=== PATIENT | female | born 1965 | race Caucasian/White ===

== ENCOUNTER 2017-01-14 01:14 | Emergency (ER) | payer MEDICAID ==
[2017-01-14 01:14] VITALS: BMI 26.9
[2017-01-14 01:28] VITALS: PULSE 134; RESP 18; TEMP 99.2
--- NOTE | 2017-01-14 02:50 | ED PDOC ---
HPI: CCC, URI, Sore Throat Time Seen by Provider: 01/14/17 02:17 Chief Complaint (Nursing): ENT Problem Chief Complaint (Provider): ENT problem History Per: Patient History/Exam Limitations: no limitations Onset/Duration Of Symptoms: Days (5x) Current Symptoms Are (Timing): Still Present Location Of Pain: Throat Associated Symptoms: Sore Throat, Cough (dry) Severity: Moderate Additional Complaint(s): 51 year old female with no pertinent medical history presents to the ED with complaints of a sore throat that started 5x days ago. She reports having associated symptoms of a cough, bodyaches, and a headache. She denies having a fever or chills. PMD: Fletcher Cabrera MD Past Medical History Reviewed: Historical Data, Nursing Documentation, Vital Signs Vital Signs: Last Vital Signs Temp 99.2 F 01/14/17 01:23 Pulse 134 H 01/14/17 01:23 Resp 18 01/14/17 01:23 BP Pulse Ox 100 01/14/17 02:58 - Medical History PMH: Hypercholesterolemia, Pneumonia Denies: Chronic Kidney Disease - Surgical History Surgical History: Endoscopy (11/2014) - Family History Family History: States: No Known Family Hx - Social History Alcohol: None Drugs: Denies - Home Medications Home Medications: Ambulatory Orders Medication Instructions Recorded Calcium/[place]-3 Fatty Acids/ 1 mg PO DAILY 12/21/14 [[place] Hydrolyzed White Fish] Nortriptyline [Nortriptyline HCl] 10 mg PO HS 12/21/14 Omeprazole 40 mg PO DAILY 12/21/14 Simvastatin 40 mg PO HS 12/21/14 Nitrofurantoin Macrocrystals 100 mg PO BID #14 cap 12/14/15 [Macrobid] Guaifenesin [Mucinex] 1,200 mg PO BID #14 ter 01/14/17 - Allergies Allergies/Adverse Reactions: Allergies Allergy/AdvReac Type Severity Reaction Status Date / Time No Known Allergies Allergy Verified 12/21/14 08:20 Review of Systems ROS Statement: Except As Marked, All Systems Reviewed And Found Negative Constitutional: Positive for: Other (bodyache). Negative for: Fever, Chills ENT: Positive for: Throat Pain Respiratory: Positive for: Cough Neurological: Positive for: Headache Physical Exam - Reviewed Nursing Documentation Reviewed: Yes Vital Signs Reviewed: Yes - Physical Exam Appears: Positive for: Well, Non-toxic, No Acute Distress Head Exam: Positive for: ATRAUMATIC, NORMOCEPHALIC Skin: Positive for: Normal Color Eye Exam: Positive for: Normal appearance ENT: Positive for: Normal ENT Inspection Cardiovascular/Chest: Positive for: Regular Rate, Rhythm Respiratory: Positive for: Normal Breath Sounds Neurologic/Psych: Positive for: Alert, Oriented (3x) - ECG O2 Sat by Pulse Oximetry: 100 (RA) Pulse Ox Interpretation: Normal Medical Decision Making Medical Decision Makin:17 Initial impression: 51 year old female with a sore throat. Initial plan: * throat culture * influenza AB * rapid strep group A antigen * reevaluation 2:45 Influenza AB is negative. Patient will be discharged with Rx for viral syndrome. Patient is instructed to return to the ED if symptoms persist or worsen. Scribe Attestation: Documented by Amber Landis, acting as a scribe for Gianna Cardenas PA-C. Provider Scribe Attestation: All medical record entries made by the Scribe were at my direction and personally dictated by me. I have reviewed the chart and agree that the record accurately reflects my personal performance of the history, physical exam, medical decision making, and the department course for this patient. I have also personally directed, reviewed, and agree with the discharge instructions and disposition. Disposition - Clinical Impression Clinical Impression: Viral illness - Patient ED Disposition Is Patient to be Admitted: No Counseled Patient/Family Regarding: Studies Performed, Diagnosis, Need For Followup, Rx Given - Disposition Disposition: Routine/Home Disposition Time: 03:07 Condition: STABLE Prescriptions: Guaifenesin [Mucinex] 1,200 mg PO BID #14 ter Instructions: Viral Syndrome (ED)
[2017-01-14 03:14] VITALS: BP 130/83; O2SAT 99
== END 2017-01-14 03:15 | disposition home or self-care (01) ==
LOC: H.ER 01:14
DX: B34.9 Viral infection, unspecified (principal); R05 Cough; R51 Headache; E78.00 Pure hypercholesterolemia, unspecified